=== PATIENT | female | born 1985 | race Caucasian/White ===

== ENCOUNTER 2017-11-21 01:27 | Inpatient (IN) | payer OTHER, SELFPAY ==
[2017-11-21 02:02] VITALS: BMI 27.8
[2017-11-21] MEDS ORDERED: Betamet Acet/Betamet Na Ph 30 MG/5 ML VIAL ONE (02:20)
[2017-11-21] MEDS ORDERED: Promethazine HCl 25 MG/ML VIAL IM PRN ×2 (02:29→16:25)
--- NOTE | 2017-11-21 02:37 | PDOC.LDHP ---
Labor and Delivery H&P Chief complaint: loss of fluid HPI: 32 y/o at 33w0d, patient of Dr. Gonzales, presents with bleeding and gush of fluid following intercourse. It was enough to soak through her boyfriend's pants. Denies ctx or decreased FM. ROS neg for HEENT, cv, pulm, gi, gu, neuro, psych, skin, musculoskeletal, or constitutional symptoms other than mentioned above. Current gestational age (weeks): 33 Dating criteria: second trimester ultrasound OB History Details: 3 prior term SVDs Current complications: none Abnormal US findings: No Past Medical History: None Current medications: pre- vitamins Previous surgical history: cholecystectomy Allergies/Adverse Reactions: Allergies Allergy/AdvReac Type Severity Reaction Status Date / Time metoclopramide HCl Allergy Verified 07/13/16 23:36 [From Reglan] ondansetron Allergy Verified 07/13/16 23:36 [From Zofran (as hydrochloride)] Social history: none - Physical Exam Vital signs reviewed and normal: yes General: NAD, resting Lungs: nonlabored breathing Abdomen: gravid Extremeties: no edema FHT: category 2 (160s, min to mod variability, + 10x10 accels, no decels) [place] contractions every: occasional - Vaginal Exam cm dilated: 1 (visually) Effacement: 0% Station: -3 - Assessment L&D Assessment: premature rupture of membranes Grossly bloody fluid on SSE; Bedside ultrasound performed revealing anhydramnios ; fetus in vertex presentation. - Plan -: Admit to L&D Celestone x 2 - first dose given in triage Antibiotic prophylaxis - Ampicillin and azithromycin ordered GBS collected T&S Vtx on ultrasound Continuous monitoring for now Will notify Dr. Gonzales
[2017-11-21] MEDS ORDERED: Azithromycin 250 MG TAB PO SCH (03:00)
[2017-11-21] MEDS ORDERED: Betamet Acet/Betamet Na Ph 30 MG/5 ML VIAL IM SCH (03:00)
[2017-11-21 03:12] LABS: #Eosinphils 0.1 thou/uL (0.0-0.7); #Lymphocytes 2.1 thou/uL (1.20-3.40); #Monocytes 0.7 thou/uL (0.11-0.59); #Neutrophils 11.4 thou/uL (1.40-6.50); %Basophils 0.3 % (0.0-1.0); %Lymphocytes 14.8 % (21.0-51.0); %Monocytes 4.9 % (0.0-10.0); Hemoglobin 9.9 g/dL (12.0-16.0); Mean Corpuscular HGB CONC 34.4 g/dL (32.0-36.0); Mean Corpuscular Hemoglobin 30.3 pg (27.0-31.0); Mean Corpuscular Volume 88.3 fl (81.0-99.0); Mean Platelet Volume 7.8 fL (7.4-10.4); Platelet Count 218 thou/uL (130-400); RBC Distribution Width 11.7 % (11.5-14.5); Red Blood Cell (RBC) Count 3.27 mill/uL (4.20-5.40); White Blood Cell (WBC) Count 14.4 thou/uL (4.8-10.8)
[2017-11-21] MEDS: Ampicillin 2 GM in Sodium Chloride 0.9% 100 ML IVPB SCH ×3 (03:20→15:14)
[2017-11-21 04:15] LABS: Hep B Surf Ag Non-Reactive S/CO (NonReactive)
[2017-11-21 05:41] LABS: Syphilis Antibody Nonreactive (Nonreactive); Syphilis Antibody Index 0.03 S/CO (<1.00 Non-Reactive)
[2017-11-21] MEDS: Acetaminophen 500 MG TAB PO PRN ×2 (09:45→15:17)
--- NOTE | 2017-11-21 10:16 | PDOC.EVN ---
Event Note - Event Note Event Note: L&D NOte OB OnCall note: Called to see patient by MAR Orta at 1000, patient seen within 5 minutes of being called (as I was in CCU). Called to assess episode of VB after voiding in toilet. This patient is at 33 weeks 0 days admitted this am for PPROM and VB post coital. I arrived and saw patient at bedside. She is stable, and in NAD S. No ctx. No CS HX. O. vitals reviewed, stable. GENERAL: NAD Abd soft, NT Perineum: no active VB Blood in toilet noted, and on last pad. Monitors: Class 1 still, no contraction pattern. Meds: Celestone, Amp and Zmax Assessment: Patient seen at bedside, stable. PPROM, prob marginal placental separaton but status reassuring at this time. Plan: 1. Notifiy Dr Gonzales (done) 2. Q&A done with patient 3. Continue ABX and celestone 4. Will get sono on record 5. Expectant management for now (patient also has handwritten note in chart).
--- NOTE | 2017-11-21 11:09 | PDOC.LDPN ---
Labor & Delivery Progress Note - Subjective Subjective: comfortable - Objective Vital signs reviewed and normal: yes General: resting [place] contractions every: rare - Assessment (1) 33 weeks gestation of Code(s): Z3A.33 - 33 WEEKS GESTATION OF Current Visit: Yes Status : Acute (2) premature rupture of membranes Code(s): O42.919 - PRETRM ANNETTE ROM, UNSP TIME BETW RUPT AND ONST LABR, UNSP TRI Current Visit: Yes Status: Acute Plan: continue plan of care -: A?P: Pt admitted overnight with PPROM @ 33 weeks, rec'd Azithromycin x 1 dose and on ampicillin IV now. S/P Celestone #1. Discussed plan of care with pt to include IV abx for 48hrs on L and D and followed by transfer to through 34 weeks. Discussed plan for IOL @ 34 weeks unless maternal or indications for delivery prior which may include labor, si/si of infection or continued bleeding. Pt questions answered.
[2017-11-21] MEDS: Lactated Ringer's 1,000 ML IV SCH ×3 (11:46→17:04)
--- NOTE | 2017-11-21 13:27 | PDOC.EVN ---
Event Note - Event Note Event Note: Preliminary Sono verbal results: @1330= Vertex, CX 3cm, DONNIE 3cm, anterior fundal placenta, EFW 1810grams
[2017-11-21] MEDS ORDERED: LR / Pitocin 40 units/1000 ml 1,000 ML IV PRN (13:40)
--- NOTE | 2017-11-21 13:44 | PDOC.LDPN ---
Labor & Delivery Progress Note - Subjective Subjective: comfortable (cramping noted during ctx) - Objective Vital signs reviewed and normal: yes General: resting Dilation: 1 Effacement: 25% Station: -3 FHT: category 1 [place] contractions every: 5-7 - Assessment (1) 33 weeks gestation of Code(s): Z3A.33 - 33 WEEKS GESTATION OF Current Visit: Yes Status : Acute (2) premature rupture of membranes Code(s): O42.919 - PRETRM ANNETTE ROM, UNSP TIME BETW RUPT AND ONST LABR, UNSP TRI Current Visit: Yes Status: Acute (3) Vaginal bleeding during Code(s): O46.90 - ANTEPARTUM HEMORRHAGE, UNSPECIFIED, UNSPECIFIED TRIMESTER Current Visit: Yes Status: Acute Plan: pitocin for augmentation -: A/P: Pt with increased volume of bright red vaginal bleeding, has soaked 2 large pads since this AM and several large clots in toilet. Discussed abruption difficult to dx by US which is reassuring at this time but clinical suspicion for abruption is high. Discussed recommendation to start IOL now while FHT are reassuring vs waiting until bleeding complicates further and increases chance of operative delivery. Pt agrees, plan for pitocin and GBS prophylaxis w PCN. Discussed w [facility] as well.
[2017-11-21] MEDS ORDERED: Penicillin G Potassium 5 MILL.UNITS in Sodium Chloride 0.9% 100 ML IVPB SCH (13:45)
[2017-11-21] MEDS ORDERED: LR 500 ML/Oxytocin 10 units 500 ML IV SCH (13:45)
--- NOTE | 2017-11-21 15:06 | ULT ---
COMPLETE ABDOMINAL ULTRASOUND: HISTORY: A 32-year-old female with a history of vaginal bleeding, at 33 weeks, with premature ruptured membran es. FINDINGS: A single viable intrauterine fetus is noted in a cephalic presentation. The placenta is posterior an d fundal. Amniotic fluid is abnormally low with an DONNIE of 3.2 cm, evidence for oligohydramnios. No evidence for placenta previa. heart rate is 125 to 130 beats per minute. ANATOMY: Exam is somewhat limited. The brain was not completely visualized. The four-chamber heard, th ree-vessel cord, stomach, bladder, kidneys, spine, and extremity regions are unremarkable. BIOMETRY: BPD: 8.3 cm-33 weeks 2 days HEAD CIRCUMFERENCE: 30.8 cm-34 weeks 3 days ABDOMINAL CIRCUMFERENCE: 25.8 cm-29 weeks 6 days FEMUR LENGTH: 6.4 cm-33 weeks 1 day IMPRESSION: 1. Gestational age average 33 weeks 0 days. 2. Expected date of confinement 01/09/2018. 3. Estimated weight 1810 g. 4. Approximately 4 week discrepancy between the head circumference and the abdominal circumference, raising concern for intrauterine growth retardation. 5. Oligohydramnios with an amniotic fluid index of 3.2. 6. No evidence for placenta previa. POS: [facility]
[2017-11-21] MEDS ORDERED: Dexamethasone 20 MG/5 ML VIAL ONE (15:21)
[2017-11-21] MEDS ORDERED: Bupivacaine 0.5% 20 ML, Fentanyl 400 MCG in Sodium Chloride 0.9% 72 ML EPIDURAL SCH (16:00)
[2017-11-21] MEDS ORDERED: DISCONTINUE ALL PREVIOUS NARCOTICS FS SCH (16:00)
[2017-11-21] MEDS ORDERED: ePHEDrine/0.9% NaCl/PF SYRINGE 50 mg/10 ml SLOW IVP PRN (16:25)
[2017-11-21] MEDS ORDERED: Naloxone HCl 0.4 mg/ml Vial IVP PRN (16:25)
[2017-11-21] MEDS ORDERED: Eucerin (Mineral Oil/Petrolatum,White) 30 gm Jar TOP PRN (16:25)
[2017-11-21] MEDS ORDERED: Acetaminophen 325 MG TAB PO PRN (16:25)
[2017-11-21] MEDS ORDERED: Lactated Ringer's 500 ML IV PRN (16:25)
[2017-11-21] MEDS ORDERED: Communication Order-Pharmacy FS SCH (16:30)
[2017-11-21] MEDS ORDERED: Fentanyl 4mcg/Marcaine 0.1% Cassette 100 ML EPIDURAL SCH (16:30)
[2017-11-21] MEDS ORDERED: Bicitra 30 ML UDCUP ONE (17:27)
[2017-11-21] MEDS ORDERED: CEFAZOLIN/Water 2 GM/20 ML SYRINGE ONE (17:27)
[2017-11-21] MEDS ORDERED: Bicitra 30 ML UDCUP PO SCH (17:30)
[2017-11-21] MEDS ORDERED: CEFAZOLIN/Water 2 GM/20 ML SYRINGE SLOW IVP SCH (17:30)
--- NOTE | 2017-11-21 17:30 | PDOC.EVN ---
Event Note - Event Note Event Note: @1520: PREOP NOTE: Patient has handwritten note in physical chart, please see that entry. PREOP DX: Class 2 to 3 strip, recurrent lates; intolerence to labor remote from delivery; marginal placental abruption clinically at 33 weeks. Plan: For Primary CS Anesthesia called. Awaiting OR team/scrub arrival. I have discussed this with the patient and family. Q&A done. Pit off. Order SCDs. Dr Gonzales en route.
--- NOTE | 2017-11-21 17:32 | PDOC.LDPN ---
Labor & Delivery Progress Note - Subjective Subjective: comfortable - Objective Vital signs reviewed and normal: yes Dilation: 1 Effacement: 50% FHT: category 2, variable decelerations, late decelerations - Assessment (1) 33 weeks gestation of Code(s): Z3A.33 - 33 WEEKS GESTATION OF Current Visit: Yes Status : Acute (2) premature rupture of membranes Code(s): O42.919 - PRETRM ANNETTE ROM, UNSP TIME BETW RUPT AND ONST LABR, UNSP TRI Current Visit: Yes Status: Acute (3) Vaginal bleeding during Code(s): O46.90 - ANTEPARTUM HEMORRHAGE, UNSPECIFIED, UNSPECIFIED TRIMESTER Current Visit: Yes Status: Acute (4) Non-reassuring electronic monitoring tracing Code(s): O76 - ABNLT IN HEART RATE AND RHYTHM COMP LABOR AND DELIVERY Current Visit: Yes Status: Acute Plan: other -: A/P: 32yo w PPROM @ 33 weeks IOL today for concern for abruption/vaginal bleeding. I reviewed the strip from my office this evening, noted recurrent decelerations and decreased variability, called L and D and asked nurse to assess cervical progress to see if pt was remote from delivery or near delivery. I was called back w ANGELICA 1cm [address] Dr. Augustin at bedside for evaluation as well. Pt w NRFHT, recurrent late decelerations and variable decelerations remote from delivery. Pt consents to 1CS.
[2017-11-21] MEDS ORDERED: Fentanyl 100 MCG/2 ML VIAL ONE (17:48)
[2017-11-21] MEDS ORDERED: Bupivacaine/Epinephrine 0.5% 10 ML VIAL ONE (17:50)
--- NOTE | 2017-11-21 17:54 | PDOC.EVN ---
Event Note - Event Note Event Note: CS Assist note: Requested to assist with primary CS with Dr Gonzales. Please see full Op note for details. I was present and assisted with CS.
[2017-11-21] MEDS ORDERED: Bupivacaine HCl 0.5%/Epinephrine 1:200,000/PF 30 ml Vial ONE (17:55)
[2017-11-21] MEDS ORDERED: Dexamethasone 4 mg/ml Vial ONE (17:58)
[2017-11-21] MEDS ORDERED: PHENYLEPHRINE-NS 100 MCG/ML 10 ML SYRINGE ONE (17:58)
[2017-11-21] MEDS ORDERED: Ondansetron HCl/PF 4 MG/2 ML Vial ONE (17:58)
[2017-11-21] MEDS ORDERED: Ketorolac Tromethamine 30 MG/ML VIAL ONE (17:58)
[2017-11-21] MEDS ORDERED: Oxytocin 10 UNITS/ML VIAL ONE ×2 (17:58→18:16)
[2017-11-21] MEDS ORDERED: ePHEDrine/0.9% NaCl/PF SYRINGE 50 mg/10 ml ONE (17:58)
--- NOTE | 2017-11-21 18:36 | PDOC.OPDEL ---
OB Operative/Delivery Note Delivery Dr/Surgeon: Christian Assist: Charli Pre-Delivery Diagnosis: non-reassuring tracing (clinical suspicion of abruption) Weeks gestation: 33 Anesthesia: epidural - Findings A Sex: male - 1 min: 8 - 5 min: 9 - Additional Findings/Plan Placenta delivered: manual removal findings: low transverse hysterotomy without extension, normal uterus, normal tubes, normal ovaries, other (hemoperitoneum on entry to abdomen) Estimated blood loss: 800ml surgical loss, additional 200ml clot and hemoperitoneum Compilations/Other Findings: placental abruption, vigorous male Post delivery plan: routine recovery (w CBC and fibrinogen in PACU, 2 units PRBCs crossed)
[2017-11-21 18:40] LABS: CO2 Tension 41.7 mmHg (35.0-45.0); pH, Arterial 7.38 (7.35-7.45)
[2017-11-21 18:41] LABS: Actual Bicarbonate (HCO3a) 23.8 mEq/L (22-26); Base Excess (BEa) -1.3 mEq/L (0 (+/-) 2.5); Hematocrit-ABG 41.5 % (36.0-47.0); Hemoglobin (Hb) 14.3 g/dL (12.0-16.0); O2 Tension (PaO2) 23.5 mmHg (80.0-100.0)
[2017-11-21 18:42] LABS: Analyzer IN Cardio OR; Calcium, Ionized 1.4 mmol/L (1.12-1.30)
[2017-11-21 19:42] LABS: Hemoglobin 9.6 g/dL (12.0-16.0); Mean Corpuscular HGB CONC 33.5 g/dL (32.0-36.0); Mean Corpuscular Hemoglobin 30.1 pg (27.0-31.0); Mean Corpuscular Volume 89.8 fl (81.0-99.0); Platelet Count 200 thou/uL (130-400); RBC Distribution Width 11.7 % (11.5-14.5); White Blood Cell (WBC) Count 14.9 thou/uL (4.8-10.8)
--- NOTE | 2017-11-21 20:12 | PDOC.EVN ---
Event Note - Event Note Event Note: @2010: HCT stable at 28, fibrinogen normal at 368. Will recheck HCT in AM
[2017-11-21] MEDS: Penicillin G 2.5 MILL.units 2.5 MILL.UNITS in Premix Bag 1 BAG IVPB SCH (20:31)
[2017-11-21] MEDS ORDERED: Bisacodyl 10 MG SUPP PR PRN (22:22)
[2017-11-21] MEDS ORDERED: LR w/ Pitocin 40 units/1000 ML BAG IV SCH (22:22)
[2017-11-21] MEDS ORDERED: diphenhydrAMINE 25 MG CAP PO PRN (22:22)
[2017-11-21] MEDS ORDERED: Lanolin Ointment 7 GM TUBE TOP PRN (22:22)
[2017-11-21] MEDS ORDERED: Meperidine HCl/PF 25 MG/ML VIAL IM PRN (22:22)
[2017-11-21] MEDS ORDERED: Simethicone Chewable 80 MG TAB PO PRN (22:22)
[2017-11-21] MEDS ORDERED: Docusate Calcium (SURFAK) 240 MG CAP PO SCH (22:45)
[2017-11-21] MEDS ORDERED: Ferrous Sulfate 325 MG TAB PO SCH (22:45)
[2017-11-21] MEDS ORDERED: Ibuprofen 800 MG TAB PO SCH (22:45)
[2017-11-22] MEDS ORDERED: Morphine 5 MG/ML SYRINGE SLOW IVP PRN (00:13)
[2017-11-22] MEDS ORDERED: Naloxone HCl 0.4 mg/ml Vial IV PRN (00:15)
[2017-11-22] MEDS: Ketorolac Tromethamine 30 MG/ML VIAL IVP PRN ×2 (00:26→06:37)
[2017-11-22 05:49] LABS: #Lymphocytes 2.3 thou/uL (1.20-3.40); #Monocytes 0.6 thou/uL (0.11-0.59); #Neutrophils 11.2 thou/uL (1.40-6.50); %Eosinophils 0.2 % (0.0-10.0); %Monocytes 4.4 % (0.0-10.0); %Neutrophils 79.4 % (42.0-75.0); Hemoglobin 7.5 g/dL (12.0-16.0); Mean Corpuscular HGB CONC 34.4 g/dL (32.0-36.0); Mean Corpuscular Hemoglobin 30.8 pg (27.0-31.0); Mean Corpuscular Volume 89.5 fl (81.0-99.0); Mean Platelet Volume 8.1 fL (7.4-10.4); Platelet Count 173 thou/uL (130-400); RBC Distribution Width 11.8 % (11.5-14.5); Red Blood Cell (RBC) Count 2.44 mill/uL (4.20-5.40); White Blood Cell (WBC) Count 14.1 thou/uL (4.8-10.8)
[2017-11-22] MEDS ORDERED: Ibuprofen 800 MG TAB PO SCH (06:00)
--- NOTE | 2017-11-22 08:54 | PDOC.PP ---
Post Progress Note Post Day #: 1 Subjective: no SOB or chest pain, no dizziness but has not ambulated, pain controlled, waiting on pump PO intake tolerated: yes Flatus: yes Ambulation: yes Vital Signs (12 hours) Temp Pulse Resp BP 11/22/17 07:49 97.9 F 77 15 116/62 11/22/17 04:15 98.4 F 62 20 11/22/17 02:15 98.6 F 63 20 116/60 11/22/17 01:10 98.5 F 72 201 H 121/69 11/22/17 00:05 98.5 F 76 20 123/65 11/22/17 00:00 98.4 F 67 20 11/21/17 23:00 98.4 F 77 20 124/67 11/21/17 21:55 99.1 F 73 18 111/63 11/21/17 21:30 99.5 F 72 20 120/57 L Weight Weight 167 lb - Physical Examination General: NAD Respiratory: non-labored breathing Abdominal: no distention, appropriately TTP Fundus firm & at: below umb Extremities: negative homans (B) Skin: CS incision dry & intact, no rash Neurological: no gross focal deficits Psychiatric: A&Ox3, normal affect Result Diagrams: 11/22/17 05:27 Additional Labs: Post Labs Blood Type A POSITIVE 11/21/17 02:50 Hep Bs Antigen Non-Reactive S/CO (NonReactive) 11/21/17 02:50 (1) 33 weeks gestation of Code(s): Z3A.33 - 33 WEEKS GESTATION OF Status: Acute (2) premature rupture of membranes Code(s): O42.919 - PRETRM ANNETTE ROM, UNSP TIME BETW RUPT AND ONST LABR, UNSP TRI Status: Acute (3) Vaginal bleeding during Code(s): O46.90 - ANTEPARTUM HEMORRHAGE, UNSPECIFIED, UNSPECIFIED TRIMESTER Status: Acute (4) Non-reassuring electronic monitoring tracing Code(s): O76 - ABNLT IN HEART RATE AND RHYTHM COMP LABOR AND DELIVERY Status: Acute - Assessment/Plan POD1 sp 1CS for NRFHT in clinical setting of placental abruption/PPROM @ 33 weeks. Pt and baby doing well, asx anemia at this time but has not gotten out of bed, discussed risk and benefits of transfusion if needed and syptoms of anemia as well. Low threshold for transfusion, VSS.
[2017-11-22] MEDS ORDERED: Adacel (T-DAP) 0.5 ML VIAL IM ONE (09:00)
[2017-11-22] MEDS ORDERED: Prenatal Vitamin 1 TAB PO SCH (09:00)
[2017-11-22] MEDS ORDERED: [UNRECOGNIZED DRUG - REMARK] PO SCH (09:00)
[2017-11-22] MEDS: Penicillin G 2.5 MILL.units 2.5 MILL.UNITS in Premix Bag 1 BAG IVPB SCH (10:16)
[2017-11-22] MEDS: Ampicillin 2 GM in Sodium Chloride 0.9% 100 ML IVPB SCH (10:16)
[2017-11-22] MEDS: Ferrous Sulfate 325 MG TAB PO SCH ×2 (10:28→16:29)
[2017-11-22] MEDS: Docusate Calcium (SURFAK) 240 MG CAP PO SCH ×2 (10:28→21:26)
[2017-11-22] MEDS: Prenatal Vitamin 1 TAB PO SCH (10:28)
[2017-11-22] MEDS: Acetaminophen/Codeine 30-300mg Tablet PO PRN ×2 (10:30→16:29)
--- NOTE | 2017-11-22 12:39 | OP ---
DATE OF PROCEDURE: 11/21/2017 PREOPERATIVE DIAGNOSES: 1. G4, P3-0-0-3 at 33 weeks with premature rupture of membrane. 2. Vaginal bleeding with clinical suspicion placental abruption. 3. Nonreassuring heart tone. POSTOPERATIVE DIAGNOSES: 1. G4, P3-0-0-3 at 33 weeks with premature rupture of membrane. 2. Vaginal bleeding with clinical suspicion placental abruption. 3. Nonreassuring heart tone. PROCEDURE PERFORMED: Primary low transverse section. SURGEON: Pan Goznales D.O. INDUSTRIAL TRUCK DRIVER: Murphy Augustin M.D. ANESTHESIA: Epidural per Dr. Cameron. SURGICAL COMPLICATIONS: None. FINDINGS: 1. Hemoperitoneum approximately 200 mL of blood and clot noted as hemoperitoneum or formed blood sterling t itself through the hysterotomy at time of uterine incision. 2. Vigorous male infant, Apgars 8 and 9, weight pending at the time of the dictation, with cord pH 7 .35 and base excess of . 3. Low transverse hysterotomy without extension. 4. Fragmented placenta with formed clot consistent with placental abruption. 5. Surgical site hemostatic. 6. Normal appearing uterus, tubes, and ovaries bilaterally. INDICATION: Brief summary, the patient was admitted overnight with spontaneous rupture of membrane d uring intercourse. The patient was noted to have some bright red vaginal bleeding on admission to [facility] and delivery that was only as it started. The heart tones are reassuring during the mornin g; however, by approximately noon to 1:00 p.m., she had increase vaginal bleeding, had soaked a perip ad and passed large clots into the toilet on voiding. At the time, her cervix was 1 cm and hea rt tracing reassuring and we discuss induction of labor for consent for placental abruption. Approxi mately 4 hours into the induction of labor, nonreassuring heart tracing was noted with late dec eleration and variable deceleration and did not resolve with normal resuscitative measures. The arabella ent was then counseled and consented for primary section. PROCEDURE IN DETAILS: The patient was taken back to the OR with IV fluids running. An epidural cath eter and Ramachandran catheter that were previously placed. The patient was placed in dorsal supine positio n with a left lateral tilt. The abdomen was prepped and draped in normal fashion for sectio n. Anesthesia was tested and found to be adequate. A Pfannenstiel skin incision was made with a sca lpel, skin incision was carried down through the subcutaneous tissue to the fascia. Once the fascia was reached, it was incised in the midline and extended superior laterally with curved Banegas scissors. Helen clamps were placed at the superior border of the fascia, which was directly and bluntly diss ected off the rectus abdominis muscles in both caudad and cephalad directions allowing adequate space for delivery of the . The rectus muscles were bluntly and the peritoneum was bluntl y entered and stretched laterally. Pneumoperitoneum was noted immediately on entry into the peritone um. Fresh blood and clot were identified. An Michael O retractor was placed into the peritoneal cavi ty for retraction, visualization, and protection of the wound. A bladder flap was created and dissec heike away from the planned hysterotomy site. The hysterotomy was made with the scalpel. The uterus b luntly entered and and the hysterotomy was extended using the Meng maneuver. The infant's head was delivered through the incision following by the body without difficulty. The cord was doubl y clamped and cut and the was carried off to the warmer, where the NICU team was present. Cor d blood was collected and cord gas was collected. The placenta and blood clot were delivered through the uterus. The uterus was exteriorized, immediately massaged to firm, and cleared of clot and debr is. The uterus was returned to the abdominal cavity. The hysterotomy was closed with Monocryl sutur e in a running locked fashion. An additional [id number] stitch was placed to the midline of hys terotomy for additional hemostasis for small areas through for bleeding. After the hysterotomy was c losed hemostasis was noted. The pericolic gutters and hysterotomy were copiously irrigated and sucti oned dry. A layer of Interceed was placed over the hysterotomy. The Michael O retractor was removed and the counts were correct. The fascia was then reapproximated with PDS suture. After the fascia w as closed and subcutaneous layer was irrigated and no areas of bleeding noted. The subcutaneous tiss ue was reapproximated with plain gut suture. The skin was closed with 4-0 Monocryl and the skin was dressed with Dermabond dressing. A sterile dressing was then applied while the patient was cleaned i n the operating room. Anesthesia to do a vial of blood to be sent for CBC and fibrinogen. During th e case, two units of blood were ordered to be crossmatched and held. The patient tolerated the proce dure well and she remained stable throughout the case.
[2017-11-22] MEDS: Ibuprofen 800 MG TAB PO SCH (21:26)
[2017-11-23] MEDS: Acetaminophen/Codeine 30-300mg Tablet PO PRN ×4 (04:13→22:05)
[2017-11-23] MEDS ORDERED: Ibuprofen 800 MG TAB PO SCH (06:00)
[2017-11-23] MEDS: Ibuprofen 800 MG TAB PO SCH ×4 (06:09→21:58)
[2017-11-23 08:04] VITALS: TEMP 98.5
[2017-11-23] MEDS: Prenatal Vitamin 1 TAB PO SCH ×2 (08:10→08:12)
[2017-11-23] MEDS: Ferrous Sulfate 325 MG TAB PO SCH ×2 (08:11→18:27)
[2017-11-23] MEDS: Docusate Calcium (SURFAK) 240 MG CAP PO SCH ×2 (08:11→21:57)
--- NOTE | 2017-11-23 09:03 | PDOC.PP ---
Post Progress Note Post Day #: 2 Subjective: pumping doing well, min pain, post op goals met PO intake tolerated: yes Flatus: yes Ambulation: yes Vital Signs (12 hours) Temp Pulse Resp BP 11/23/17 08:00 98.5 F 84 18 119/72 11/23/17 04:05 97.9 F 67 18 11/23/17 00:00 98.5 F 75 18 117/65 Weight Weight 167 lb - Physical Examination Respiratory: non-labored breathing Abdominal: no distention, appropriately TTP Extremities: negative homans (B) Skin: CS incision dry & intact, no rash Neurological: no gross focal deficits Psychiatric: A&Ox3, normal affect Result Diagrams: 11/22/17 05:27 Additional Labs: Post Labs Blood Type A POSITIVE 11/21/17 02:50 Hep Bs Antigen Non-Reactive S/CO (NonReactive) 11/21/17 02:50 (1) 33 weeks gestation of Code(s): Z3A.33 - 33 WEEKS GESTATION OF Status: Acute (2) premature rupture of membranes Code(s): O42.919 - PRETRM ANNETTE ROM, UNSP TIME BETW RUPT AND ONST LABR, UNSP TRI Status: Acute (3) Vaginal bleeding during Code(s): O46.90 - ANTEPARTUM HEMORRHAGE, UNSPECIFIED, UNSPECIFIED TRIMESTER Status: Acute (4) Non-reassuring electronic monitoring tracing Code(s): O76 - ABNLT IN HEART RATE AND RHYTHM COMP LABOR AND DELIVERY Status: Acute - Assessment/Plan POD2 doing well sp 1CS for NRFHT and abruption @ 33 weeks after PPROM. Doing well, baby doing well in NICU. Cont pp care.
[2017-11-24 04:22] VITALS: BP 103/62
[2017-11-24] MEDS: Ibuprofen 800 MG TAB PO SCH ×2 (05:41→14:54)
--- NOTE | 2017-11-24 06:33 | PDOC.PP ---
Post Progress Note Post Day #: 3 PO intake tolerated: yes Flatus: yes Ambulation: yes Vital Signs (12 hours) Temp Pulse Resp BP 11/24/17 04:00 98.5 F 75 18 11/24/17 01:00 98.5 F 75 18 103/62 11/24/17 00:00 98.5 F 84 18 11/23/17 20:20 98.6 F 77 18 119/73 11/23/17 20:00 98.5 F 84 18 Weight Weight 167 lb - Physical Examination Cardiovascular: no m/r/g, RRR Respiratory: clear to auscultation bilaterally Abdominal: + bowel sounds, lochia, no distention Extremities: negative homans (B) Skin: CS incision dry & intact, no rash Neurological: no gross focal deficits Psychiatric: A&Ox3, normal affect Result Diagrams: 11/22/17 05:27 Additional Labs: Post Labs Blood Type A POSITIVE 11/21/17 02:50 Hep Bs Antigen Non-Reactive S/CO (NonReactive) 11/21/17 02:50 (1) Placental abruption affecting delivery Code(s): O45.90 - PREMATURE SEPARATION OF PLACENTA, UNSP, UNSP TRIMESTER Status: Acute - Assessment/Plan doing well. dc today
[2017-11-24] MEDS: Prenatal Vitamin 1 TAB PO SCH (09:01)
[2017-11-24] MEDS: Docusate Calcium (SURFAK) 240 MG CAP PO SCH (09:01)
[2017-11-24] MEDS: Ferrous Sulfate 325 MG TAB PO SCH ×2 (09:03→17:14)
[2017-11-24] MEDS: Acetaminophen/Codeine 30-300mg Tablet PO PRN ×2 (10:36→17:13)
== END 2017-11-24 17:35 | disposition home or self-care (01) | DRG 765 ==
LOC: L&D/OP 01:27 → L&D 03:17 → 3SW 21:19
PROVIDERS: ADMIT Obstetrics & Gynecology; ATTEND Obstetrics & Gynecology
PROC: 10D00Z1 Extraction of Products of Conception, Low, Open Approach (ICD-10-PCS; principal; 2017-11-21)
DX: O42.913 Preterm premature rupture of membranes, unspecified as to length of time between rupture and onset of labor, third trimester (principal); O45.93 Premature separation of placenta, unspecified, third trimester; Z3A.33 33 weeks gestation of pregnancy; Z37.0 Single live birth; O76 Abnormality in fetal heart rate and rhythm complicating labor and delivery
CPT/HCPCS: 36415; 51702; 76805; 76815; 82805; 85025; 85384; 86780; 86850; 86900; 86901; 87081; 87340; 88307; 99285; J2270; J0290; J0670; J0702; J1100; J1885; J2405; J2540; J2590; J3010; J3490; J7050; J7120

== ENCOUNTER 2019-11-14 18:34 | Inpatient (IN) | payer OTHER, SELFPAY ==
[~2019-11-14 18:34] MED LIST: Iopamidol-370 76% 500 ML 1 ML ONE
[2019-11-14] MEDS ORDERED: Ondansetron ODT 4 MG TAB ONE (19:15)
[2019-11-14 19:19] LABS: #Eosinphils 0.1 thou/uL (0.0-0.7); #Monocytes 0.4 thou/uL (0.11-0.59); #Neutrophils 12.2 thou/uL (1.40-6.50); %Basophils 0.2 % (0.0-1.0); %Eosinophils 0.4 % (0.0-10.0); %Lymphocytes 7.5 % (21.0-51.0); %Monocytes 3.1 % (0.0-10.0); %Neutrophils 88.8 % (42.0-75.0); Hemoglobin 11.1 g/dL (12.0-16.0); Mean Corpuscular HGB CONC 32.9 g/dL (32.0-36.0); Mean Corpuscular Hemoglobin 27.7 pg (27.0-31.0); Mean Corpuscular Volume 84.1 fL (78.0-98.0); Mean Platelet Volume 8.2 fL (7.4-10.4); Platelet Count 343 thou/uL (130-400); RBC Distribution Width 14.8 % (11.5-14.5); White Blood Cell (WBC) Count 13.8 thou/uL (4.8-10.8)
[2019-11-14 19:41] LABS: ALT (SGPT) 77 U/L (8-55); AST (SGOT) 38 U/L (5-34); Albumin 3.8 g/dL (3.5-5.0); Alkaline Phosphatase 204 U/L (40-110); Anion Gap 15 mmol/L (10-20); BUN (Urea Nitrogen) 13 mg/dL (7.0-18.7); Bilirubin, Total 0.3 mg/dL (0.2-1.2); Calc. Creatinine Clearance 0 mL/min (70-130); Calcium 9.1 mg/dL (7.8-10.44); Carbon Dioxide 21 mmol/L (22-29); Chloride 104 mmol/L (98-107); Estimated GFR-MDRD Greater than 90; Globulin 3.6 g/dL (2.4-3.5); Glucose 118 mg/dL (70-105); Potassium 4.1 mmol/L (3.5-5.1); Protein, Total 7.4 g/dL (6.0-8.3); Sodium 136 mmol/L (136-145)
[2019-11-14] MEDS ORDERED: Ketorolac Tromethamine 30 MG/ML VIAL ONE (20:06)
--- NOTE | 2019-11-14 20:44 | CT ---
CT abdomen and pelvis: 11/14/2019 COMPARISON: 10/20/2013 HISTORY: Lower abdominal pain TECHNIQUE: Axial CT imaging at 5 mm intervals from the lung bases through the pubic symphysis with IV contrast. Coronal and sagittal reformatted imaging obtained. FINDINGS: The visualized lung bases are unremarkable. Cholecystectomy clips are present. No free intr aperitoneal air is noted. A very small fat-containing umbilical hernia is noted. There is hypodensity within the ventral aspect of the left lobe of the liver along the course of the falciform ligament, consistent with a focal area of fatty infiltration. The spleen, pancreas, adrenal glands, and kidneys demonstrate no acute findings. There is significant abnormal free fluid within the pelvis, including the pelvic cul-de-sac and super ior to the urinary bladder. There is small volume abnormal free fluid in the perisplenic region as well. Evaluation of the bowel is limited without oral contrast media. The colon is decompressed and t hus evaluation for bowel wall thickening is suboptimal. However, there are areas in which the colonic wall appears prominent, including the cecum, the region of the hepatic flexure, and the regio n of the descending colon. These findings may signify multifocal colonic inflammatory change. The appendix appears grossly unremarkable. Numerous areas of wall thickening are seen involving small bowel throughout the abdomen/pelvis, left greater than right, most prominent within the mid left abdomen. Within the left upper quadrant there are fluid-filled dilated loops of small bowel which measure up to 3 cm in transverse dimension. There are scattered areas of mesenteric fat stranding suggesting inflammatory change. No drainable abscess is appreciated. The vascular structures of the abdomen/pelvis appear patent. No pelvic, retroperitoneal, or mesenteri c lymphadenopathy is noted. Review of the osseous structures demonstrates no worrisome lytic or blastic lesion. IMPRESSION: There is nonspecific free fluid within the abdomen and pelvis and there are multiple area s of wall thickening involving the colon and small bowel suggesting a nonspecific diffuse inflammatory process. Proximal small bowel dilatation may signify developing small bowel obstruction or ileus. No free intraperitoneal air or evidence of drainable abscess. Etiology of these findings is uncertain. Findings could be related to inflammatory bowel disease, diffuse infectious process, et c.
[2019-11-14 22:00] LABS: Bilirubin Negative (Negative); Blood, Urine Trace (Negative); Clarity Cloudy (Clear); Glucose, Urine (Dipstick) Negative (Negative); Leukocyte Negative (Negative); Nitrite Positive (Negative); Protein, Urine (Dipstick) Negative (Neg-Trace); Urobilinogen 0.2 mg/dL (Less than 2)
[2019-11-14 22:09] LABS: Bacteria/HPF 3+ HPF (None Seen); Squamous Epithelial 0-3 HPF (0-3); WBC/HPF 0-3 HPF (0-3)
[2019-11-14] MEDS ORDERED: Morphine 4 MG/ML VIAL ONE (22:15)
[2019-11-14] MEDS ORDERED: Piperacillin/Tazobactam 3.375 GM VIAL ONE (22:16)
[2019-11-14] MEDS ORDERED: Metoclopramide HCl 10 MG/2 ML VIAL ONE (22:18)
[2019-11-14 22:24] LABS: BHCG - Serum Negative (NEGATIVE); Pregs Control Background? CLEAR/WHITE (CLR/WHITE); Pregs Control Bar Appear? YES (CONTROL BAR)
[2019-11-14] MEDS ORDERED: Azithromycin 500 MG VIAL ONE (23:04)
[2019-11-14] MEDS ORDERED: Lorazepam 2 MG/ML VIAL ONE (23:29)
[2019-11-15 01:05] VITALS: BMI 26.4
[2019-11-15] MEDS: Dextrose 5 % And 0.9 % NaCl 1,000 ML IV SCH ×3 (01:11→23:14)
--- NOTE | 2019-11-15 01:45 | HP ---
CHIEF COMPLAINT: Abdominal pain, nausea, vomiting, and diarrhea. HISTORY OF PRESENT ILLNESS: The patient is a 34-year-old female with no significant past medical history, who presents to the hospital with complaints of one week of abdominal pain followed by one day of nausea, vomiting, and diarrhea. The patient states that she does have an issue with constipation. She has been kind of constipated for about a week now. She has tried probiotic and Gas-X, which normally seems to help her, however, this has not helped her. She stated that she has sharp abdominal pain at baseline and also worsens with food. She states that today she started been having significant nausea, vomiting and this morning she had multiple episodes of diarrhea. Denies any blood in her diarrhea. Just stated that it was very watery. She denies any sick contacts. She denies any recent travels. She denies eating out anywhere. PAST MEDICAL HISTORY: She denies. PAST SURGICAL HISTORY: She just had cholecystectomy. FAMILY HISTORY: No history of any heart disease, cancer, or stroke. SOCIAL HISTORY: She denies any smoking or alcohol use; however, she does smoke half a joint every night to relax her. She has had a positive history of cocaine in the past. She also is a full code. 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 REVIEW OF SYSTEMS: All negative except for the ones mentioned above in HPI. PHYSICAL EXAMINATION: VITAL SIGNS: Temperature of 98, 17, 69, 134/91. GENERAL: She is awake, alert, and oriented x3. Feels very nauseous. HEENT: Normocephalic, atraumatic. No lymphadenopathy noted. Pupils equal and reactive to light. CV: S1 and S2 present. No murmurs, rubs, or gallops. LUNGS: Clear to auscultation. No rhonchi or wheezes noted. ABDOMEN: Soft. Bowel sounds are present x2. Pain upon palpation all over. No guarding noted. EXTREMITIES: Lower extremities, no edema. Pedal pulses present x2. NEUROVASCULAR: No focal deficits noted. SKIN: She does have a tattoo in her right wrist. LABORATORY RESULTS: Her is negative. Her urine is positive for nitrites and bacteria 3+. She did have a CT of abdomen and pelvis, which indicate nonspecific free fluid in the abdomen and pelvis, some wall thickening involving the colon and the small bowel suggesting nonspecific diffuse inflammatory process. Proximal small-bowel dilation was noted that may signify small bowel obstruction or ileus. No drainable abscess was noted. Lipase was normal. Sodium was 136, potassium of 4.1, BUN of 13, creatinine 0.62. Her AST was 38, ALT was 77. Her bilirubin was normal. Her alkaline phosphatase was 204. WBCs of 13.8, hemoglobin of 11.1, hematocrit of 33.6. Her platelets are normal at 343. ASSESSMENT/PLAN: The patient is a 34-year-old female who presents to the hospital with complaints of abdominal pain, nausea, and vomiting. 1. Abdominal pain, nausea, and vomiting. This could be infectious etiology versus constipation related versus maybe inflammatory bowel disease. The patient states that she normally has issues with constipation. I will go ahead and check a TSH on her. She states that she has been having significant amount of constipation going on for the past week. She has had EGDs done in 2016, which indicated grade D reflux and esophagitis with focal gastritis also. We will put her on some PPI. For now, GI has been consulted. I will check her stool for any leukocytes. We will also check a UDS since she has a history of marijuana use and she is using marijuana. I am not sure if this is adding something to her nausea, vomiting, however, she states that that helps her sleep. 2. Elevated liver function tests with alkaline phosphatase and normal bilirubin. We will check a hepatitis panel on her and continue to monitor. If her enzymes do not get improved, then maybe a right upper quadrant ultrasound would be recommended. However, she has had a cholecystectomy in the past. 3. Mild leukocytosis. Given the fact that she is having abdominal pain, nausea, vomiting, and diarrhea, possible infectious, we will cover her with Cipro and Flagyl for now and continue to monitor. 4. Deep venous thrombosis prophylaxis. We will put patient on some subcu Lovenox. Job ID: [id number]
[2019-11-15 02:12] LABS: Amphetamine Detected (NotDetected); Barbiturates Screen Not Detected (NotDetected); Benzodiazepine Screen Not Detected (NotDetected); Cocaine Metabolite Screen Not Detected (NotDetected); Medtox Control Line Valid? VALID (VALID); Medtox Reader # READER 4; Methadone Not Detected (NotDetected); Methamphetamine Detected (NotDetected); Opiate Screen Not Detected (NotDetected); Oxycodone Screen Not Detected (NotDetected); Phencyclidine (PCP) Not Detected (NotDetected); THC/Cannabinoid Screen Detected (NotDetected); Tricyclic Screen Not Detected (NotDetected)
[2019-11-15] MEDS: metroNIDAZOLE 500 MG in Premix Bag 1 BAG IVPB SCH ×3 (03:12→18:20)
[2019-11-15] MEDS: Ondansetron PF 4 MG/2 ML Vial IVP PRN ×2 (04:59→18:20)
[2019-11-15 05:45] LABS: #Lymphocytes 1.6 thou/uL (1.20-3.40); #Monocytes 0.4 thou/uL (0.11-0.59); #Neutrophils 12.1 thou/uL (1.40-6.50); %Basophils 0.2 % (0.0-1.0); %Eosinophils 0.1 % (0.0-10.0); %Lymphocytes 11.3 % (21.0-51.0); %Monocytes 2.9 % (0.0-10.0); %Neutrophils 85.6 % (42.0-75.0); Hemoglobin 9.5 g/dL (12.0-16.0); Mean Corpuscular HGB CONC 33.1 g/dL (32.0-36.0); Mean Corpuscular Hemoglobin 27.8 pg (27.0-31.0); Mean Platelet Volume 8.1 fL (7.4-10.4); Platelet Count 320 thou/uL (130-400); RBC Distribution Width 14.8 % (11.5-14.5); Red Blood Cell (RBC) Count 3.43 mill/uL (4.20-5.40); White Blood Cell (WBC) Count 14.1 thou/uL (4.8-10.8)
[2019-11-15 06:06] LABS: Anion Gap 16 mmol/L (10-20); BUN (Urea Nitrogen) 13 mg/dL (7.0-18.7); Calc. Creatinine Clearance 144 mL/min (70-130); Calcium 8.4 mg/dL (7.8-10.44); Carbon Dioxide 22 mmol/L (22-29); Chloride 105 mmol/L (98-107); Estimated GFR-MDRD Greater than 90; Glucose 121 mg/dL (70-105); Potassium 3.9 mmol/L (3.5-5.1); Sodium 139 mmol/L (136-145)
[2019-11-15 06:27] LABS: HBCM Index 0.05 S/CO (0-0.79); HBSAg Index 0.14 S/CO (0-0.99); Hep A IgM AB Non-Reactive (NonReactive); Hep A IgM S/CO 0.45 S/CO (0-0.79); Hep B Surf Ag Non-Reactive S/CO (NonReactive); Hep C IgG Ab Non-Reactive (NonReactive); Hep C Index 0.11 S/CO (0-0.79); Hepatitis B Core IgM Abs Non-Reactive (NonReactive)
[2019-11-15] MEDS: Famotidine/PF 20 mg/2ml Vial SLOW IVP SCH ×2 (09:34→22:13)
[2019-11-15] MEDS: Enoxaparin Sodium 40 MG/0.4 ML SYRINGE SC SCH (09:34)
--- NOTE | 2019-11-15 14:50 | CON ---
DATE OF CONSULTATION: 11/15/2019 REQUESTING PHYSICIAN: Dr. Mckeon. REASON FOR CONSULTATION: Abdominal pain and diarrhea. HISTORY OF PRESENT ILLNESS: Disha Wagner is a 34-year-old woman who was admitted to the hospital overnight. She had a prior history of cholecystectomy back in 2013. In 2016, during a brief admission with abdominal pain and nausea, she had an EGD performed by Dr. Morales, which showed grade D erosive esophagitis. She reports no chronic gastrointestinal symptoms. She does tend toward constipation a bit. She reports that over about the past week she has had some migratory abdominal pains which have been worsening in frequency and intensity. These are sharp pains which can be all over the abdomen, particularly in the lower abdomen and in the right upper quadrant, usually worse postprandially and associated with worsening constipation. She went several days without a bowel movement, was spending some time on the toilet straining, but not defecating. Then yesterday the abdominal pain significantly worsened. She had nausea and multiple episodes of nonbloody emesis and then also multiple episodes of very watery nonbloody diarrhea. She was having subjective chills, and this all prompted her presentation last night. She was found to have a leukocytosis with WBC of 14.1. She had a CT of the abdomen and pelvis and this demonstrates multiple areas of wall thickening throughout the colon and small bowel suggesting nonspecific diffuse inflammatory process. There is no evidence of any free air, though there is some nonspecific free fluid within the abdomen, which is likely reactive. There is a bit of proximal small bowel dilation, likely representing developing ileus. The patient denies any sick contacts or recent travel. No recent antibiotic use. She denied recent drug use, but I note that urine drug screen is positive for amphetamines and cannabinoids. She does admit to smoking marijuana every now and then to help her sleep. REVIEW OF SYSTEMS: Full review of systems including constitutional, head, eyes, ears, nose, throat, GI, , cardiovascular, respiratory, musculoskeletal, neurologic systems is negative except as noted in the HPI. PAST MEDICAL HISTORY: G4, P4, cholecystectomy in 2013, drug abuse, currently marijuana, prior history of cocaine abuse, erosive esophagitis in 2016. SOCIAL HISTORY: She denies tobacco or alcohol use. She does endorse smoking marijuana but denies all other current drug use. FAMILY HISTORY: Negative for any known history of inflammatory bowel disease or GI malignancy. ALLERGIES: PROMETHAZINE, METOCLOPRAMIDE, ONDANSETRON. OUTPATIENT MEDICATIONS: None. INPATIENT MEDICATIONS: 1. Ciprofloxacin 400 mg IV q.12 hours. 2. Metronidazole 500 mg IV q.8 hours. 3. Pepcid 20 mg IV q.12 hours. 4. Zofran p.r.n. 5. Lovenox 40 mg subcutaneously daily. PHYSICAL EXAMINATION: VITAL SIGNS: Temperature 98, pulse 60, blood pressure 147/85, 99% oxygen saturation on room air. GENERAL: A 34-year-old woman sitting up in bed comfortably, in no distress. SKIN: No jaundice, no rashes were palpable. HEENT: Eyes, no scleral icterus. Extraocular movements intact. ENT, mucous membranes moist. No oral lesions. LYMPH: No submandibular or supraclavicular lymphadenopathy. THYROID: Nontender to palpation. HEART: Regular rate and rhythm. LUNGS: Clear to auscultation bilaterally. ABDOMEN: Nondistended. Bowel sounds are present. The abdomen is soft, diffusely tender to palpation, particularly in the lower abdomen. No guarding. Mild rebound tenderness. EXTREMITIES: No peripheral edema. VESSELS: Radial pulses 2+ bilaterally. NEUROLOGIC: Cranial nerves 2 through 12 intact bilaterally. No focal deficits. LABORATORY STUDIES: WBC 14.1, hemoglobin 9.5, platelets 320. Sodium 139, potassium 3.9, BUN 13, creatinine 0.63, glucose 121, calcium 8.4. Total bilirubin 0.3. Alkaline phosphatase 204, AST 38, ALT 77. Albumin 3.8. Lipase is less than 4. Serum test negative. Urinalysis shows 7 to 10 RBCs, 0 to 3 WBCs. Urine drug screen positive for amphetamines, methamphetamines, and cannabinoids. Viral hepatitis serologies are all negative. IMAGING STUDIES: CT of the abdomen and pelvis demonstrates multiple areas of inflammatory appearing thickening throughout the small bowel and the colon as well as some free fluid in the abdomen, which is likely reactive, consistent with diffuse infectious or inflammatory process. ASSESSMENT AND PLAN: 1. Acute enteritis. Notably, symptoms are all acute over the past several days. Given the diffuse nature of the CT findings, this likely represents an acute infectious process, viral versus bacterial. I have ordered stool studies for culture as well as O and P, Cyclospora, norovirus, and fecal lactoferrin. She has already been started on empiric antibiotics with ciprofloxacin and Flagyl. Again, given the acuity of presentation, I have a very low suspicion for inflammatory bowel disease. I suspect with supportive care, this will run its course and we will start seeing symptom resolution within the next few days. 2. Elevated LFTs, mild. Note, she is post cholecystectomy. Viral hepatitis serologies are negative. This may just be reactive to whatever inflammatory process is going on. No further liver specific workup at this time. 3. Polysubstance abuse. Urine is positive for amphetamines and marijuana. She should really stop all this. It puts her at risk for similar presentations. 4. GI can follow along. Please call anytime with questions or concerns. We will start her on a clear liquid diet. No plan for any endoscopic investigation in the acute setting. Job ID: [id number]
--- NOTE | 2019-11-15 19:19 | PDOC.HOSPP ---
- Subjective Encounter Date: 11/15/19 Encounter Time: 16:00 Subjective: THe patient reports having abdominal pain for the past two weeks and persistent diarrhea. Abdominal pain got so severe she couldn't take it anymore. Per nursing staff she is being sent for stool cultures. She states she had some clear liquid today and it started her cramping. She has hysterectomy She is wanting a colonoscopy but is eager to wait to rule out infection. Utox positive for amphetamine and marijuana. Patient states she smokes marijuana occasionally at night if she feels nauseous - Objective Vital Signs & Weight: Vital Signs (12 hours) Temp Pulse Resp BP Pulse Ox 11/15/19 16:01 98.3 F 64 18 106/70 100 11/15/19 10:29 98.0 F 60 14 147/85 H 99 11/15/19 07:18 98.4 F 54 L 16 156/87 H 98 Weight Weight 158 lb 8 oz I&O: 11/14/19 11/15/19 11/16/19 06:59 06:59 06:59 Intake Total 550 Output Total 0 Balance 550 Result Diagrams: 11/15/19 05:28 11/15/19 05:28 Hospitalist ROS - Medication Medications: Active Medications Generic Name Dose Route Start Last Admin Trade Name Freq PRN Reason Stop Dose Admin Enoxaparin Sodium 40 mg 11/15/19 09:00 11/15/19 09:34 Lovenox SC 40 mg 0900 JAIMIE Administration Famotidine 20 mg 11/15/19 09:00 11/15/19 09:34 Pepcid SLOW IVP 20 mg Q12HR JAIMIE Administration Ciprofloxacin/Dextrose 400 mg/ 200 mls @ 200 mls/hr 11/15/19 01:00 11/15/19 13:21 Device IVPB 200 mls 0100,1300 JAIMIE Administration Dextrose/Sodium Chloride 1,000 mls @ 100 mls/hr 11/15/19 00:15 11/15/19 12:00 D5 0.9% Ns IV Not Given .Q10H JAIMIE Metronidazole 500 mg/ Device 100 mls @ 100 mls/hr 11/15/19 02:00 11/15/19 18: 20 IVPB 100 mls 0200,1000,1800 JAIMIE Administration Ondansetron HCl 4 mg 11/14/19 23:49 11/15/19 18:20 Zofran IVP 4 mg Q6H PRN Administration Nausea/Vomiting - Exam General Appearance: NAD, awake alert Eye: PERRL, anicteric sclera ENT: normocephalic atraumatic, no oropharyngeal lesions Neck: no JVD Heart: RRR, no murmur, no gallops, no rubs Respiratory: CTAB, no wheezes, no rales, no ronchi Gastrointestinal: soft. negative: distended Gastrointestinal - other findings: diffuse tenderness, no rebound, guarding or rigidity Extremities: no cyanosis, no clubbing, no edema, 1+ LE edema Skin: normal turgor, no lesions, no rashes Hosp A/P - Plan CT abdomen: colon wall thickening + diffuse inflammation This is a 34 year old female who presented with abdominal pain, found to have colitis #Colitis versus enteritis #Diarrhea #E coli UTI - continue cipro and flagyl . Send stool culture, norovirus, cyclospora, stool for ova and parasite. GI is consulted and following - vaginitis screen negative - diet advanced to clear liquids, will monitor for now - Leukocytosis - WBC increase to 14 - will monitor, currently no fevers Anemia - Hb dropped from 11 to 9 - send stool guiac - check iron panel, B12/folate DVT prophylaxis: SCDS, ambulation Code status: full code
[2019-11-15] MEDS: Acetaminophen 325 MG TAB PO PRN (22:13)
[2019-11-16] MEDS: metroNIDAZOLE 500 MG in Premix Bag 1 BAG IVPB SCH ×3 (02:07→17:57)
[2019-11-16] MEDS: Ondansetron PF 4 MG/2 ML Vial IVP PRN ×3 (02:49→22:44)
[2019-11-16] MEDS: Dextrose 5 % And 0.9 % NaCl 1,000 ML IV SCH ×2 (04:48→17:57)
[2019-11-16 05:45] LABS: Iron 26 ug/dL (50-170); Iron Binding Capacity, Total 258 mcg/dL (265-497)
[2019-11-16 06:11] LABS: Ferritin 59.12 ng/mL (10-291)
[2019-11-16] MEDS: Acetaminophen 325 MG TAB PO PRN ×2 (08:36→16:13)
[2019-11-16] MEDS: Famotidine/PF 20 mg/2ml Vial SLOW IVP SCH ×2 (08:39→21:00)
[2019-11-16] MEDS: Enoxaparin Sodium 40 MG/0.4 ML SYRINGE SC SCH (08:39)
[2019-11-16 11:49] LABS: #Lymphocytes 1.7 thou/uL (1.20-3.40); #Monocytes 0.4 thou/uL (0.11-0.59); #Neutrophils 4.5 thou/uL (1.40-6.50); %Basophils 0.2 % (0.0-1.0); %Eosinophils 0.4 % (0.0-10.0); %Monocytes 6.2 % (0.0-10.0); %Neutrophils 68.2 % (42.0-75.0); Hemoglobin 9.1 g/dL (12.0-16.0); Mean Corpuscular HGB CONC 32.8 g/dL (32.0-36.0); Mean Corpuscular Hemoglobin 27.3 pg (27.0-31.0); Mean Corpuscular Volume 83.2 fL (78.0-98.0); Mean Platelet Volume 8.1 fL (7.4-10.4); Platelet Count 313 thou/uL (130-400); RBC Distribution Width 14.5 % (11.5-14.5); Red Blood Cell (RBC) Count 3.35 mill/uL (4.20-5.40); White Blood Cell (WBC) Count 6.6 thou/uL (4.8-10.8)
--- NOTE | 2019-11-16 14:23 | PRG ---
DATE OF SERVICE: 11/16/2019 SUBJECTIVE: Ms. Wagner feels a little bit better today. Abdominal discomfort persists, but is decreased in intensity. She has still been having diarrhea, had 3 loose stools so far today, nonbloody. She has otherwise remained stable, tolerating a liquid diet. OBJECTIVE: VITAL SIGNS: Temperature 98.3, pulse 53, blood pressure 145/89, 100% oxygen saturation on room air. GENERAL: In no acute distress. HEART: Regular rate and rhythm. LUNGS: Clear to auscultation bilaterally. ABDOMEN: Mild distention. Tympanitic. Bowel sounds are present throughout. Some mild tenderness to palpation throughout the abdomen, but no guarding or rebound tenderness. EXTREMITIES: No peripheral edema. LABORATORY STUDIES: WBC down to 6.6, hemoglobin 9.1, platelets 313. Sodium 139, potassium 3.9, BUN 13, creatinine 0.63. Ferritin 59.12, iron 26, TIBC 258. 10% saturation showed iron studies are mixed. Vitamin B12 is 1218. Folic acid normal at 12.3. Stool studies show elevated fecal lactoferrin and positive FOBT. Clostridium difficile antigen and toxin are negative. Rapid parasite screen, Campylobacter antigen, and Shiga toxin are negative. Preliminary stool culture shows moderate normal enteric tamiko. Awaiting norovirus PCR and Cyclospora smear. ASSESSMENT AND PLAN: 1. Acute enteritis and colitis, suspect infectious etiology, versus onset of inflammatory bowel disease. Still awaiting several stool studies and continuing empiric antibiotics. Expect clinical improvement within the next several days if indeed this is infectious in nature. If remainder of stool studies are unrevealing and there is no significant improvement in symptoms, we could consider diagnostic colonoscopy later this admission. For now, continuing with clear liquid diet. 2. Polysubstance abuse. Note urine was positive for amphetamines and marijuana. 3. Urinary tract infection. Urine culture growing Escherichia coli. She is currently receiving ciprofloxacin and Flagyl. Job ID: [id number]
[2019-11-16] MEDS ORDERED: Dicyclomine 10 MG CAP PO PRN (17:04)
[2019-11-16] MEDS ORDERED: Lidocaine 5% Patch TD SCH (17:15)
[2019-11-16 17:24] LABS: Chlamydia by PCR DETECTED (NotDetected); GC by PCR Not Detected (NotDetected)
--- NOTE | 2019-11-16 19:14 | PDOC.HOSPP ---
- Subjective Encounter Date: 11/16/19 Encounter Time: 13:00 Subjective: The patient continues to report severe pain. She states that the pain is more in her back now and her abdominal pain has improved slightly. She continues to get severe cramping with drinking even clear liquids. SHe reports pain in her pelvic area and complains that she is still having vaginal bleeding. She states typically her periods usually last only four days, but she states that she is continuing to have bleeding even though its been five days. The patient does give a history of iron deficiency anemia and complains of chronic fatigue. SHe states she takes caffeine to give herself energy - Objective Vital Signs & Weight: Vital Signs (12 hours) Temp Pulse Resp BP Pulse Ox 11/16/19 15:18 98.4 F 51 L 16 136/74 100 11/16/19 11:09 98.3 F 53 L 16 145/89 H 100 11/16/19 07:42 96.5 F L 53 L 14 64/34 L 95 11/16/19 07:23 98.0 F 52 L 16 128/85 100 Weight Weight 158 lb 8 oz I&O: 11/15/19 11/16/19 11/17/19 06:59 06:59 06:59 Intake Total 550 1300 Output Total 0 Balance 550 1300 Result Diagrams: 11/16/19 11:34 11/15/19 05:28 Hospitalist ROS - Review of Systems Constitutional: denies: fever, chills Gastrointestinal: reports: nausea, abdominal pain - Medication Medications: Active Medications Generic Name Dose Route Start Last Admin Trade Name Freq PRN Reason Stop Dose Admin Acetaminophen 650 mg 11/14/19 23:49 11/16/19 16:13 Tylenol PO 650 mg Q4H PRN Administration Headache/Fever/Mild Pain (1-3) Enoxaparin Sodium 40 mg 11/15/19 09:00 11/16/19 08:39 Lovenox SC 40 mg 0900 JAIMIE Administration Famotidine 20 mg 11/15/19 09:00 11/16/19 08:39 Pepcid SLOW IVP 20 mg Q12HR JAIMIE Administration Dextrose/Sodium Chloride 1,000 mls @ 100 mls/hr 11/15/19 00:15 11/16/19 17:57 D5 0.9% Ns IV 1,000 mls .Q10H JAIMIE Administration Metronidazole 500 mg/ Device 100 mls @ 100 mls/hr 11/15/19 02:00 11/16/19 17: 57 IVPB 100 mls 0200,1000,1800 JAIMIE Administration Lidocaine 1 patch 11/16/19 17:15 11/16/19 17:59 Lidoderm 5% Patch TD 11/16/19 19:15 1 patch NOW JAIMIE Administration Ondansetron HCl 4 mg 11/14/19 23:49 11/16/19 08:36 Zofran IVP 4 mg Q6H PRN Administration Nausea/Vomiting - Exam General Appearance: NAD, awake alert Eye: PERRL, anicteric sclera ENT: normocephalic atraumatic, no oropharyngeal lesions Neck: no JVD Heart: RRR, no murmur, no gallops, no rubs Respiratory: CTAB, no wheezes, no rales, no ronchi Gastrointestinal: soft Gastrointestinal - other findings: right flank tenderness, mild RUQ and RLQ tenderness. Suprapubic tenderness Extremities: no cyanosis, no clubbing, no edema Skin: normal turgor, no lesions, no rashes Hosp A/P - Plan CT abdomen: colon wall thickening + diffuse inflammation This is a 34 year old female who presented with abdominal pain, found to have colitis #Colitis versus enteritis #Diarrhea #E coli UTI #Chlamydia infection with possible pelvic inflammatory disease -was started on cipro and flagyl. Given concurrent chlamydia infection, will check pelvic ultrasound to evaluate for pelvic inflammatory disease and switch to IV ceftriaxone and add doxycycline. Will continue flagyl. Stool cultures including ova and parasite, C diff negative. Vaginitis panel negative - continue clear liquid diet for now - add bentyl for pain and lidocaine patch Leukocytosis- resolved Iron deficiency Anemia - Hb dropped from 11 to 9 - occult blood negative - iron panel shows borderline low ferritin and low iron sat. Hold off on iron supplementation at this time due to severe pain DVT prophylaxis: SCDS, ambulation Code status: full code
[2019-11-16] MEDS ORDERED: Doxycycline 100 MG CAP PO SCH (19:15)
[2019-11-16] MEDS ORDERED: cefTRIAXone\\ROCEPHIN 1 GM in Sodium Chloride 0.9% 100 ML IVPB SCH (20:00)
[2019-11-16] MEDS ORDERED: Azithromycin 1,000 MG in Sodium Chloride 0.9% 500 ML IVPB SCH (20:30)
--- NOTE | 2019-11-16 20:44 | PDOC.EVN ---
Event Note - Event Note Event Note: OBGYN Informal Consult Requested by Dr Reema Sullivan Time: 2039 DX: Possible colitis, pelvic pain, chlamydia Note:: I have just discussed this case with Dr Reema Sullivan on the phone to review this case. This was an informal consult (physician to physician). I did not evaluate the patient at bedside as that is likely not indicated at this time as she is stable , non-surgical, and is already undergoing medical treatment. This patient presented with LAP. Subsequent CT scan revealed possible colitis changes to the bowel with inflammatory changes. Her Chlamydia test did return POS today as well. I was initially consulted for a pelvic exam. However, pelvic exam may not be too specific for genital infection due to the peritoneal inflammation of the colitis. I have recommended the following with Dr Sullivan: 1. Pelvic sono to R/O TOA (which we would still treat medically, but would have a diagnosis). 2. Chlamydia: Unsure if this is incidental finding (as most are ASX) or contributing to her pelvic pain on top of the colitis issue. Rec CDC protocol for PID to be conservative: Rocephin (one time ZMax for GC double coverage); and Doxy and Flagyl. The flagyl may assist with the colitis as well. I have ordered the zmax as the other meds in use. Her VP3 was negative. 3. Test for HIV and RPR, Hep B Surface Antigen as part of STI panel. I have put these in the system
--- NOTE | 2019-11-16 21:38 | PDOC.EVN ---
Event Note - Event Note Event Note: I have seen this patient at bedside. Time: 2119 I have reviewed with her the CHL DX and the reason for the pelvic sono. I recommended partner therapy HARIS. I also reviewed with her HIV and RPR as conservative care. I discussed the RX of IV ABX for now. History: 34 yo WF with LAP, possible colitis PE: Patient is rsting in NAD RR unlabored Abd/pelvic differred as family in room and would not add to DX. Assessment: DX: Chlamydial infection Plan: ABX check HIV and RPR Await sono
[2019-11-16 22:06] LABS: Syphilis Antibody Nonreactive (Nonreactive); Syphilis Antibody Index 0.04 S/CO (<1.00 Non-Reactive)
[2019-11-16 22:44] LABS: HIV (1/2) Antibody/Antigen Non-Reactive (NonReactive); HIV 1/2 INDEX 0.14 S/CO (<1.00)
--- NOTE | 2019-11-16 23:37 | PDOC.EVN ---
Event Note - Event Note Event Note: Lab check: HIV and RPR negative
[2019-11-17] MEDS: metroNIDAZOLE 500 MG in Premix Bag 1 BAG IVPB SCH ×2 (02:04→09:22)
[2019-11-17] MEDS: Dextrose 5 % And 0.9 % NaCl 1,000 ML IV SCH ×2 (03:46→12:34)
[2019-11-17] MEDS: Ondansetron PF 4 MG/2 ML Vial IVP PRN (04:35)
[2019-11-17 05:26] LABS: Hemoglobin 9.7 g/dL (12.0-16.0); Mean Corpuscular HGB CONC 32.6 g/dL (32.0-36.0); Mean Corpuscular Hemoglobin 27.2 pg (27.0-31.0); Mean Corpuscular Volume 83.4 fL (78.0-98.0); Mean Platelet Volume 8.3 fL (7.4-10.4); Platelet Count 378 thou/uL (130-400); RBC Distribution Width 14.5 % (11.5-14.5); Red Blood Cell (RBC) Count 3.55 mill/uL (4.20-5.40); White Blood Cell (WBC) Count 10.1 thou/uL (4.8-10.8)
[2019-11-17 05:47] LABS: Anion Gap 10 mmol/L (10-20); BUN (Urea Nitrogen) 6 mg/dL (7.0-18.7); Calc. Creatinine Clearance 134 mL/min (70-130); Calcium 8.3 mg/dL (7.8-10.44); Carbon Dioxide 26 mmol/L (22-29); Chloride 105 mmol/L (98-107); Estimated GFR-MDRD Greater than 90; Glucose 117 mg/dL (70-105); Potassium 3.4 mmol/L (3.5-5.1); Sodium 138 mmol/L (136-145)
[2019-11-17] MEDS: Acetaminophen 325 MG TAB PO PRN ×2 (08:23→12:34)
[2019-11-17] MEDS: Famotidine/PF 20 mg/2ml Vial SLOW IVP SCH (08:24)
[2019-11-17] MEDS: Enoxaparin Sodium 40 MG/0.4 ML SYRINGE SC SCH (08:24)
[2019-11-17] MEDS ORDERED: Doxycycline 100 MG CAP PO SCH (09:00)
[2019-11-17] MEDS ORDERED: Potassium Chloride 20 MEQ TAB PO SCH (10:15)
--- NOTE | 2019-11-17 10:48 | ULT ---
TRANSABDOMINAL TRANSVAGINAL PELVIC ULTRASOUND: INDICATION: History of and 3 prior vaginal deliveries with concern for pelvic inflammatory disease. COMPARISON: CT of the abdomen and pelvis dated 11/14/2019. TECHNIQUE: Transabdominal and transvaginal pelvic ultrasound was performed. Morales scale, color Doppler, and spec tral Doppler images were obtained. FINDINGS: The uterus measures 8.3 x 4.6 x 5.9 cm. The endometrial stripe measures 3.8 mm. A small amount of f luid is seen within the endometrial canal which is nonspecific. The right ovary is slightly enlarged measuring 5.7 x 2.8 x 5 cm. The left ovary measures 3.1 x 3.0 x 4.1 cm. There is normal flow to both ovaries. There are normal follicles within the left ovary. T here is a mildly complex hypoechoic cyst within the right adnexa measuring 2.3 x 1.1 cm. There is mo derate free fluid in the pelvis. IMPRESSION: 1. Moderate free fluid in the pelvis. 2. Mildly complex cyst within the right adnexa. Findings may reflect an involuting hemorrhagic cyst . An ovarian abscess could potentially have this appearance following treatment. Followup pelvic ult rasound in 6-8 weeks is recommended to document resolution. 3. Nonspecific endometrial fluid in the endometrial canal. There is a scar involving the anterior uterine body. POS: BH
--- NOTE | 2019-11-17 11:17 | PRG ---
DATE OF SERVICE: 11/17/2019 SUBJECTIVE: The patient's chlamydia probe came back positive yesterday and antibiotics were adjusted to include IV ceftriaxone as well as oral doxycycline, continuing the Flagyl. Yesterday, as her abdominal pain continued to improve, she was having a lot of back pain, but now this morning she says she is doing much better on both fronts. Her diarrhea has also significantly slowed down. She is still somewhat nauseated, has not really eaten anything yet today. She has been afebrile. Pelvic ultrasound was done and that report is still pending. OBJECTIVE: VITAL SIGNS: Temperature 98.7, pulse 48, blood pressure 149/88, and 97% oxygen saturation on room air. GENERAL: No acute distress. HEART: Regular rate and rhythm. LUNGS: Clear to auscultation bilaterally. ABDOMEN: Bowel sounds are present. The abdomen is now soft and nontender to palpation. EXTREMITIES: No peripheral edema. LABORATORY STUDIES: Hemoglobin 9.7, WBC 10.1, and platelets 378. Sodium 138, potassium 3.4, BUN 6, creatinine 0.68, and glucose 117. Chlamydia DNA PCR was positive. Hepatitis serologies all negative. HIV negative. Syphilis serology negative. Gonorrhea PCR negative. ASSESSMENT AND PLAN: Acute gastroenteritis, suspect infectious etiology, viral versus possible manifestation of severe pelvic inflammatory disease. I discussed with the patient that this would be a fairly atypical and severe presentation of pelvic inflammatory disease, but on the other hand, she has had significant improvement with antibiotics. I think this is much less likely to represent onset of inflammatory bowel disease. Expect continued symptomatic improvement with antibiotics. No plan for any diagnostic endoscopy at this time. I think her diet can be advanced as tolerated. Appreciate the assistance of Gynecology and the primary service. I can plan to follow up with her in clinic in a few weeks, and if diarrhea or abdominal pain or symptoms persist at that time, we could re-evaluate. Please call anytime with questions or concerns. Job ID: [id number]
[2019-11-17 11:40] VITALS: BP 158/96; TEMP 98.3
--- NOTE | 2019-11-17 11:58 | PDOC.EVN ---
Event Note - Event Note Event Note: Follow up on u/s. Findings sig for small 2.5cm complex hypoechoic fluid and some free fluid in pelvis. Nothing impressive for TOA. Pt has remained afebrile. WC normal without left shift. pt subjectively reports resolution of pain. With +Chlamydia and over all clinical picture will recommend conservative treatment with doxycycline 100mg bid x 10 more days and flagyl 500mg bid x10 more days. She can followup with pcp and repeat us in 6-8wks.
--- NOTE | 2019-11-17 22:05 | DIS ---
DATE OF ADMISSION: 11/14/2019 DATE OF DISCHARGE: 11/17/2019 CONSULTATIONS: GI with Dr. Donell Jeffries. Informal consultation with AMPHIBIOUS OPERATIONS OFFICER with Dr. Murphy Augustin. PROCEDURES: None. DISCHARGE DIAGNOSES: 1. Colitis, 2. Possible pelvic inflammatory disease secondary to chlamydia infection 3. E coli UTI 4. Complex ovarian cyst 5. Iron deficiency anemia 6. Hypokalemia 7. Methamphetamine abuse and cannabinoid abuse. BRIEF HISTORY OF PRESENT ILLNESS: This is a 34-year-old female with a past medical history of iron deficiency anemia, who had presented to the emergency room with 1-week history of progressive abdominal pain, nausea, vomiting, and diarrhea. She took Gas-X with no relief in her pain. She reported significant pain with p.o. intake. She denied any sick contacts. Upon evaluation to the emergency room, the patient was afebrile. Her lab showed a white count of 13.8. She had a CT scan of her abdomen, which showed colon wall thickening and diffuse inflammation. She was started on empiric antibiotics and admitted to the hospital. HOSPITAL COURSE: Colitis versus enteritis/pelvic inflammatory disease/chlamydia infection/E coli UTI: The patient was initially treated with IV Cipro and Flagyl. For her diarrhea, she had stool cultures done which were normal including ova and parasites and C diff. Her fecal lactoferrin was elevated. GI was consulted and sent norovirus panel which was pending still. The patient did have a vaginitis panel done in the emergency room due to complaints of some vaginal bleeding and pelvic pain and this came back negative. STD testing was positive for Chlamydia, negative for HIV and syphilis. Her urine culture came back positive for E coli. . AMPHIBIOUS OPERATIONS OFFICER was consulted and recommended a pelvic ultrasound. Pelvic ultrasound showed a complex ovarian cyst in the right adnexa that was 2.3 x 1.1 cm. Her Cipro was switched to ceftriaxone 1 g and she was given 1 dose of 1 g of azithromycin. She was continued on Flagyl and she was started on doxycycline for treatment of her chlamydia infection. The following day, the patient's abdominal pain completely resolved and she was tolerating a regular diet. She was discharged with doxycycline 100 b.i.d. for 10 more days for chlamydia infection. She was also discharged with cefdinir for 10 more days for empiric treatment of gonorrhea, E coli UTI, and her colitis. She was also discharged with Flagyl for 10 more days for empiric treatment of colitis and possible vaginitis. She should follow up with her PCP in 1 week. Complex ovarian cyst: This was noted on pelvic ultrasound. She needs a repeat pelvic ultrasound in 6 to 8 weeks. She can follow up with AMPHIBIOUS OPERATIONS OFFICER, Dr. Augustin if there are any abnormalities. Iron deficiency anemia: The patient had hemoglobin of 11 on admission, which dropped to 9.7 on the 16th. Her ferritin was 59, iron saturation was 10. She had normal vitamin B12 and folate. She was discharged with iron supplementation. She should have repeat CBC and iron panel in 6 weeks. Hypokalemia: The patient has a potassium of 3.4. She was given potassium supplementation and can have a repeat BMP in a week. Methamphetamine and cannabinoid abuse: The patient was interrogated about this and she denied amphetamine abuse, but does smoke marijuana as needed for nausea. She was advised to abstain from any substances. DISCHARGE PHYSICAL EXAMINATION: VITAL SIGNS: Temperature 98.3, heart rate 55, respiratory rate 16, O2 saturation 99% room air, blood pressure 158/96. GENERAL: The patient is alert, awake, oriented x3. CVS: Regular rate and rhythm with no murmurs, rubs, or gallops. LUNGS: Clear to auscultation bilaterally. ABDOMEN: Positive bowel sounds, soft, nontender, nondistended. EXTREMITIES: No edema. PERTINENT LABORATORY DATA: CBC on 11/16; white count 10.1, hemoglobin 9.7, hematocrit 29.6, platelets 378. BMP on 11/16; potassium 3.4. Rest of BMP is unremarkable. LFTs; AST 38, ALT 77, alkaline phosphatase 204. Iron panel; iron 26, TIBC 258, iron sat 10, ferritin 59. Vitamin B12: is 1218. Folate :12.3. test :negative. UA; positive nitrite, negative leukocyte esterase, 0-3 white blood cells. Urine culture :shows 100,000 E coli. Vaginitis screen: negative. Stool lactoferrin :elevated. Stool culture on 11/14: moderate normal enteric tamiko is present. Campylobacter/shiga toxin/parasite screen: negative. C diff on 11/14: negative. Occult blood stool on 11/14: negative. U-tox :positive for methamphetamine, amphetamine, and cannabinoids. Hepatitis serology: negative. HIV :negative. Syphilis :negative. Chlamydia DNA: detected. PERTINENT IMAGING: CT abdomen on 11/13: nonspecific free fluid within the abdomen and pelvis with multiple areas of wall thickening involving the colon and small bowel suggesting a nonspecific diffuse inflammatory process. Proximal small-bowel dilation may signify developing small-bowel obstruction or ileus. Pelvic ultrasound on 11/17/2019: moderate free fluid in the pelvis. Mildly complex cyst within the right adnexa, which may reflect an involuting hemorrhagic cyst. Ovarian abscess could have this appearance as well. Followup pelvic ultrasound in 6 to 8 weeks is recommended. DISCHARGE CONDITION: Stable. DIET: Regular diet. ACTIVITY: As tolerated. DISCHARGE MEDICATIONS: 1. Cefuroxime 250 mg p.o. q.12. 2. Doxycycline 100 mg p.o. b.i.d. for 10 days. 3. Iron sulfate 325 mg p.o. b.i.d. 4. Flagyl 500 mg p.o. t.i.d. for 10 days. DISCHARGE INSTRUCTIONS: The patient is to follow up with her PCP in a week and have a repeat CBC to reassess her anemia and BMP for hypokalemia. She should have a repeat pelvic ultrasound in 6 to 8 weeks. The patient was advised to stop all illicit drug use. Job ID: [id number] [facility]
== END 2019-11-17 17:19 | disposition home or self-care (01) | DRG 690 ==
LOC: ERS 18:34 → SURG A 23:02
PROVIDERS: ADMIT Internal Medicine; ATTEND Internal Medicine
DX: A56.11 Chlamydial female pelvic inflammatory disease (principal); N39.0 Urinary tract infection, site not specified; K52.9 Noninfective gastroenteritis and colitis, unspecified; F15.10 Other stimulant abuse, uncomplicated; F12.10 Cannabis abuse, uncomplicated; D50.0 Iron deficiency anemia secondary to blood loss (chronic); B96.20 Unspecified Escherichia coli [E. coli] as the cause of diseases classified elsewhere; N83.209 Unspecified ovarian cyst, unspecified side; E87.6 Hypokalemia; Z90.49 Acquired absence of other specified parts of digestive tract; Z88.8 Allergy status to other drugs, medicaments and biological substances
CPT/HCPCS: 36415; 74177; 76856; 80048; 80053; 80074; 80306; 81003; 81015; 82274; 82607; 82728; 82746; 83540; 83550; 83630; 83690; 84703; 85025; 85027; 86780; 87015; 87045; 87046; 87077; 87086; 87186; 87206; 87324; 87328; 87329; 87389; 87427; 87449; 87480; 87491; 87510; 87591; 87660; 87798; 96361; 96365; 96367; 96368; 96375; J0456; J0696; J0744; J1650; J1885; J2060; J2270; J2405; J2543; J2765; J3490; J7050; Q0162; Q9967; S0028